=== PATIENT | female | born 1985 | race Caucasian/White ===

== ENCOUNTER → 2017-09-27 | Outpatient (CLI) | payer OTHER ==
[~2017-09-27] VITALS: Ht 157.5 cm; Wt 130.2 kg
[~2017-09-27] MED LIST: DCS100C PO; HYDR-3720 PO; IBP800T PO; PREN1TAB39 PO; PREN1TAB86 PO
[2017-09-27 14:05] VITALS: BP 121/81
== END ==
LOC: PREOP 13:51
PROVIDERS: ATTEND Obstetrics & Gynecology
DX: Z01.818 Encounter for other preprocedural examination (principal); O34.211 Maternal care for low transverse scar from previous cesarean delivery; O41.03X0 Oligohydramnios, third trimester, not applicable or unspecified
CPT/HCPCS: 87081

== ENCOUNTER 2017-10-06 06:09 | Inpatient (IN) | payer BC, OTHER ==
[~2017-10-06] VITALS: Ht 157.5 cm; Wt 127.0 kg
[2017-10-06] MEDS ORDERED: LACTATED RINGERS 1,000 ML IV PRN (10:12)
[2017-10-06] MEDS ORDERED: FAMOTIDINE 20MG/2ML IV (PEPCID) IV ONE (10:15)
[2017-10-06] MEDS ORDERED: CATHETER FLUSH 10 ML SYR IV PRN (10:15)
[2017-10-06] MEDS ORDERED: CITRIC ACID/SOB CIT (BICITRA) 30 ML UDC PO ONE (10:15)
[2017-10-06] MEDS ORDERED: metroNIDAZOLE 500MG/100ML IVPB 100 ML IV ONE (10:15)
[2017-10-06] MEDS ORDERED: METOCLOPRAMIDE INJ 10 MG/2 ML (REGLAN) IV ONE (10:15)
[2017-10-06] MEDS ORDERED: ceFAZolin 2 GM/50 ML NS 50 ML IV ONE (10:15)
[2017-10-06] MEDS ORDERED: metroNIDAZOLE 500MG/100ML IVPB 100 ML ONE (10:21)
[2017-10-06] MEDS ORDERED: ceFAZolin 2 GM/50 ML NS 50 ML ONE (10:22)
[2017-10-06] MEDS ORDERED: FAMOTIDINE 20MG/2ML IV (PEPCID) ONE (10:22)
[2017-10-06 10:30] VITALS: BP 106/68
[2017-10-06] MEDS: LACTATED RINGERS 1,000 ML IV PRN ×2 (11:07→12:29)
[2017-10-06 11:24] LABS: BASOPHILS % (AUTO) 0 % (0-10); EOSINOPHILS % (AUTO) 0 % (0-10); HEMATOCRIT 33 % (35-52); HEMOGLOBIN 10.9 G/DL (11.5-16.0); LYMPHOCYTES # (AUTO) 0.6 X 10^3 (1.0-4.0); LYMPHOCYTES % (AUTO) 9 % (12-44); MEAN CORPUSCULAR HEMOGLOBIN 27 PG (25-34); MEAN CORPUSCULAR HGB CONC 33 G/DL (32-36); MEAN CORPUSCULAR VOLUME 81 FL (80-99); MEAN PLATELET VOLUME 9.7 FL (7.4-10.4); MONOCYTES # (AUTO) 0.6 X 10^3 (0.0-1.0); MONOCYTES % (AUTO) 10 % (0-12); NEUTROPHILS # (AUTO) 5.4 X 10^3 (1.8-7.8); NEUTROPHILS % (AUTO) 81 % (42-75); PLATELET COUNT 193 10^3/uL (130-400); RED BLOOD COUNT 4.03 10^6/uL (4.35-5.85); WHITE BLOOD COUNT 6.6 10^3/uL (4.3-11.0)
[2017-10-06 11:30] VITALS: BP 90/53
[2017-10-06] MEDS ORDERED: OXYTOCIN/NORMAL SALINE 500 ML IV SCH (11:48)
--- NOTE | 2017-10-06 11:48 | History & Physical ---
History and Physical Date Seen by Provider: Oct 06, 2017 Time Seen by Provider: 11:45 this patient is a 31-year-old A1 1 white female with a due date of October 19, 2017 putting her at 38-1/7 weeks gestation. Recent ultrasound showed MAEGAN decreased to the low 50s. This patient has had poor gestational weight gain and Fetus was measuring small for gestational age. He denies rupture membranes or bleeding. She said no other problems with this . GBS culture done after 35 weeks gestation was negative. allergies are none Medications are vitamins Medical social histories are per the antepartum record HEENT exam is normal Neck is supple no lymphadenopathy no thyromegaly Abdomen is gravid soft nontender nondistended fundal height is appropriate for gestational age Extreme show no clubbing or cyanosis. There is no Homans sign. There is some pretibial pitting edema that is normal. Pelvic exam is deferred monitor shows an occasional contraction that the patient does not feel monitor shows a normal heart rate pattern Laboratory Tests 10/06/17 11:00 Hemoglobin white count and platelet counts are normal Assessment and plan term at 38-1/7 weeks gestation with oligohydramnios and previous and suspicion for IUGR. Plan is to proceed with delivery on this date term at 38-1/7 weeks gestation with oligohydramnios and previous C- section and IUGR Allergies and Home Medications Allergies Coded Allergies: No Known Drug Allergies (Unverified , 09/27/17) Home Medications Vit W-Ca,Fe,FA(<1 mg) 1 Each Tablet, 1 EACH PO DAILY, (Reported) Clinical Quality Measures DVT/VTE Risk/Contraindication: Risk Factor Score Per Nursin RFS Level Per Nursing on Admit: 1=Low/No VTE PPX EDUARD NUR MD Oct 06, 2017 11:48 am
[2017-10-06] MEDS ORDERED: D5 LR IV SOLUTION 1,000 ML IV ONE (11:56)
[2017-10-06] MEDS ORDERED: fentaNYL INJECTION 100 MCG/2 ML AMP ONE (11:59)
[2017-10-06 12:00] VITALS: BP 106/52
[2017-10-06] MEDS ORDERED: MEASLES,MUMPS,RUBELLA 1 EA INJ SC ONE (12:00)
[2017-10-06] MEDS ORDERED: PROMETHAZINE INJ 25 MG/ML (PHENERGAN) AMP IM PRN (12:00)
[2017-10-06] MEDS ORDERED: ONDANSETRON 4 MG/2 ML (SDV) Z0FRAN IVP PRN (12:00)
[2017-10-06] MEDS ORDERED: TETANUS,DIPTH,PERTUSS P/F (BOOSTRIX) 0.5 ML VIAL IM ONE (12:00)
[2017-10-06] MEDS ORDERED: MEPERIDINE (DEMEROL) INJ 100 MG/ML IM PRN (12:00)
[2017-10-06] MEDS ORDERED: PHENYLEPHRINE 100 MCG/ML 10 ML (ANESTHESIA) SYR ONE (12:39)
[2017-10-06] MEDS ORDERED: INFLUENZA TRIvalent 2017-2018 0.5 ML/45 MCG SYR IM ONE (13:15)
[2017-10-06] MEDS: oxyCODONE/APAP 10/325MG (PERCOCET 10) TABLET PO PRN (15:42)
[2017-10-06] MEDS: KETOROLAC 30 MG/ML VIAL IVP SCH ×2 (15:42→21:39)
[2017-10-06 16:00] VITALS: BP 95/56
--- NOTE | 2017-10-06 18:38 | OPERATIVE REPORT ---
DATE OF SERVICE: 10/06/2017 PREOPERATIVE DIAGNOSIS: Term at 38 and 1/7th weeks gestation with oligohydramnios and suspicion for intrauterine growth restriction. POSTOPERATIVE DIAGNOSIS: Term at 38 and 1/7th weeks gestation with oligohydramnios and suspicion for intrauterine growth restriction. OPERATIVE PROCEDURE: Repeat low transverse delivery of a viable female with Apgars of 8 and 9 at 1 and 5 minutes respectively, weight 7 pounds 14 ounces, and time of 1234. Cord blood had a pH of 7.24. OPERATIVE DESCRIPTION: With the patient in the supine position under satisfactory spinal anesthesia, she was prepped and draped in the usual fashion for abdominal surgery. She had a very large panniculus and a very thick mons. Towel clips were placed at the upper margin of the right and left lower quadrants and Kerlix was attached to those towel clips and used to secure the panniculus up exposing the lower abdominal wall in the operative field by attaching the Kerlix to the towel clips at the apex of the bed. A repeat Pfannenstiel incision made through the skin with a scalpel. The patient's abdomen entered in the usual manner. Bladder retractor placed in position and clean scalpel used to make a 4 cm hysterotomy incision transversely across the lower uterine segment. The membranes were intact. They bulged through that incision and continued to bulge through as the incision was extended by blunt dissection. The membranes were then ruptured with an Allis clamp releasing clear fluid. Duarte forceps were applied to facilitate the delivery of a vigorous viable female . The infant had Apgars, weight, stats as noted above. We did not want to apply fundal pressure aggressively secondary to the retraction instruments on the abdominal wall. The infant was bulb suctioned on delivery of the head and again on completion of delivery. The umbilical cord was doubly clamped and cut. The passed to the pediatric nurse in attendance for delivery. Cord bloods were obtained. The placenta delivered spontaneously Quinn. It was normal with the 3-vessel cord. The uterus was exteriorized, the interior wiped clean with a wet laparotomy sponge. Uterine incision was then closed with a running lock suture of 2-0 Vicryl. Hemostasis was complete. The uterus was returned to abdominal cavity. All blood clot and debris removed from the abdominal cavity. With sponge and needle counts correct and hemostasis assured, the anterior parietal peritoneum was closed with a running suture of 2-0 Vicryl. The rectus muscles were reapproximated with that suture as well, rectus fascia was closed with 2-0 Vicryl, subcutaneous tissue with 2-0 Vicryl and the skin was stapled. Sponge and needle counts were correct at the end of the procedure. Estimated blood loss for the procedure was around 600 mL. The patient tolerated the procedure well and was transferred to recovery room in stable condition. The had been taken stable to the full term nursery under the care of the pediatric nurse. Job ID: [id number] DocumentID: [id number] Dictated Date: 10/06/2017 13:00:09 [employer] Date: 10/06/2017 18:37:46 Dictated By: EDUARD NUR MD MTDD
[2017-10-06 21:30] VITALS: BP 123/77
[2017-10-06] MEDS: DOCUSATE SODIUM 100 MG (COLACE) CAP PO SCH (21:39)
[2017-10-07 01:00] VITALS: BP 106/70
[2017-10-07] MEDS: oxyCODONE/APAP 10/325MG (PERCOCET 10) TABLET PO PRN ×4 (01:06→16:40)
[2017-10-07] MEDS: KETOROLAC 30 MG/ML VIAL IVP SCH ×2 (03:53→14:38)
[2017-10-07 03:55] VITALS: BP 97/58
[2017-10-07] MEDS: DOCUSATE SODIUM 100 MG (COLACE) CAP PO SCH ×2 (08:05→20:50)
[2017-10-07 08:08] VITALS: BP 103/69
--- NOTE | 2017-10-07 08:22 | Progress Note-Standard ---
Standard Progress Note Progress Notes/Assess & Plan Date Seen by Provider: Oct 07, 2017 Time Seen by Provider: 08:21 Progress/Assessment & Plan this patient is without complaint. She is ambulating, voiding, has adequate pain control. Patient denies chest pain, denies nausea vomiting, denies headache, denies shortness of breath. Vital Signs Date Time Temp Pulse Resp B/P (MAP) Pulse Ox O2 Delivery O2 Flow Rate FiO2 10/07/17 08:08 97.7 90 20 103/69 (80) 99 Room Air 10/07/17 03:55 98.9 101 20 97/58 (71) 96 Room Air 10/07/17 01:00 99.5 92 20 106/70 (82) 98 Room Air 10/06/17 21:30 98.8 95 20 123/77 (92) 100 Room Air 10/06/17 16:00 97.7 90 20 95/56 (69) 96 Room Air 10/06/17 12:00 102 16 106/52 (70) 10/06/17 11:30 107 18 90/53 (65) 10/06/17 10:30 99.0 109 18 106/68 (81) I & O 10/07/17 07:00 Intake Total 5630 ml Output Total 1450 ml Balance 4180 ml Vital signs are stable. Patient is afebrile. The abdomen is benign. The incision is clean dry and intact. Extremities show no clubbing cyanosis. There is no Homans sign. Assessment and plan postoperative day number 1 status post repeat doing well plan is for routine convalescence care today and consider for discharge home tomorrow EDUARD NUR MD Oct 07, 2017 8:22 am
--- NOTE | 2017-10-07 10:13 | Anesthesia-Regional Post-Op ---
Regional Patient Condition Mental Status: Alert, Oriented x3 Circulation: Same as Pre-Op Headache: Absent Sensation: Full Recovery Motor Block: Absent Post Op Complications Complications None Follow Up Care/Instructions Patient Instructions None needed. Anesthesia/Patient Condition Patient is doing well, no complaints, stable vital signs, no apparent adverse anesthesia problems. No complications reported per nursing. CHAIM MERCADO CRNA Oct 07, 2017 10:13
[2017-10-07 12:00] VITALS: BP 118/66
[2017-10-07] MEDS: IBUPROFEN 800 MG (MOTRIN) TAB PO SCH ×2 (12:04→18:21)
[2017-10-07 16:00] VITALS: BP 120/72
[2017-10-07 20:45] VITALS: BP 111/66
[2017-10-08] MEDS: IBUPROFEN 800 MG (MOTRIN) TAB PO SCH ×3 (01:10→12:36)
[2017-10-08 03:30] VITALS: BP 95/61
[2017-10-08 08:30] VITALS: BP 106/70
--- NOTE | 2017-10-08 09:28 | Progress Note-Standard ---
Standard Progress Note Progress Notes/Assess & Plan Date Seen by Provider: Oct 08, 2017 Time Seen by Provider: 09:26 Progress/Assessment & Plan this patient is without complaint. She is ambulating, voiding, has adequate pain control. Patient denies chest pain, denies nausea vomiting, denies headache, denies shortness of breath. Vital Signs Date Time Temp Pulse Resp B/P (MAP) Pulse Ox O2 Delivery O2 Flow Rate FiO2 10/07/17 08:08 97.7 90 20 103/69 (80) 99 Room Air 10/07/17 03:55 98.9 101 20 97/58 (71) 96 Room Air 10/07/17 01:00 99.5 92 20 106/70 (82) 98 Room Air 10/06/17 21:30 98.8 95 20 123/77 (92) 100 Room Air 10/06/17 16:00 97.7 90 20 95/56 (69) 96 Room Air 10/06/17 12:00 102 16 106/52 (70) 10/06/17 11:30 107 18 90/53 (65) 10/06/17 10:30 99.0 109 18 106/68 (81) I & O 10/07/17 07:00 Intake Total 5630 ml Output Total 1450 ml Balance 4180 ml Vital signs are stable. Patient is afebrile. The abdomen is benign. The incision is clean dry and intact. Extremities show no clubbing cyanosis. There is no Homans sign. Assessment and plan postoperative day number 1 status post repeat doing well plan is for routine convalescence care today and consider for discharge home tomorrow October 08, 2017 Patient without complaint. She is ambulating, voiding, tolerating by mouth, has good pain control. Patient denies chest pain, denies shortness of breath, denies nausea vomiting, and denies headache. Vital Signs Date Time Temp Pulse Resp B/P (MAP) Pulse Ox O2 Delivery O2 Flow Rate FiO2 10/08/17 03:30 97.6 74 18 95/61 (72) 98 Room Air 10/07/17 20:45 97.3 81 18 111/66 (81) 99 Room Air 10/07/17 16:40 98.4 10/07/17 16:00 98.4 89 20 120/72 (88) 99 Room Air 10/07/17 12:00 98.4 95 20 118/66 (83) 98 Room Air I & O 10/08/17 07:00 Intake Total 1000 ml Output Total 900 ml Balance 100 ml vital signs are stable. Patient is afebrile. The abdomen is benign. The fundus is firm below the umbilicus and nontender. The incision is clean dry and intact. Extremities show clubbing cyanosis. There is no Homans sign. There is some pretibial pitting edema that is normal. Assessment and plan is operative day number 2 status post repeat doing well. Plan will be for discharge home. If baby is not released we will hold discharge discharge until tomorrow Final Diagnosis term repeat delivery EDUARD NUR MD Oct 08, 2017 9:28 am
[2017-10-08] MEDS ORDERED: DOCU100C37 PO (09:29)
[2017-10-08] MEDS ORDERED: OXYC-465 PO (09:29)
[2017-10-08] MEDS ORDERED: IBUP-1780 PO (09:29)
--- NOTE | 2017-10-08 09:31 | Discharge Instructions ---
Discharge Instructions Discharge Medications New, Converted or Re-Newed RX: RX on Chart Patient Instructions Patient Instructions: as directed Return to The Hospital For: as directed Activity & Diet Discharge Diet: No Restrictions Activity as Tolerated: No Orders-Post D/C & Referrals Follow Up Appt: RTC Saturday, October 14, 2017 at 930 a.m. for incision check. Call to make follow up appt. for patient in 4 weeks. Wound Care: Remove paula, apply benzoin and steri strips. Activity Per routine post instructions. Please call in RX to patient pharmacy. Diet as tolerated Patient may shower or tub bathe as desired. Continue home meds EDUARD NUR MD Oct 08, 2017 9:31 am
[2017-10-08] MEDS: DOCUSATE SODIUM 100 MG (COLACE) CAP PO SCH (10:18)
[2017-10-08] MEDS ORDERED: TETANUS,DIPTH,PERTUSS P/F (BOOSTRIX) 0.5 ML VIAL IM ONE (12:52)
[2017-10-08] MEDS: oxyCODONE/APAP 10/325MG (PERCOCET 10) TABLET PO PRN (13:54)
== END 2017-10-08 14:25 | disposition home or self-care (01) | DRG 765 ==
LOC: LDRP 10:03
PROVIDERS: ADMIT Obstetrics & Gynecology; ATTEND Obstetrics & Gynecology
PROC: 10D00Z1 Extraction of Products of Conception, Low, Open Approach (ICD-10-PCS; principal; 2017-10-06 12:07)
DX: O36.5930 Maternal care for other known or suspected poor fetal growth, third trimester, not applicable or unspecified (principal); O41.03X0 Oligohydramnios, third trimester, not applicable or unspecified; O34.211 Maternal care for low transverse scar from previous cesarean delivery; Z3A.38 38 weeks gestation of pregnancy; Z37.0 Single live birth; Z23 Encounter for immunization
CPT/HCPCS: 36415; 85025; 86850; 86900; 86901; 90715; 94664